=== PATIENT | male | born 1930 | race Caucasian/White ===

== ENCOUNTER → 2017-04-21 | Outpatient (CLI) | payer OTHER, BC | LOC: FIMAGING 13:21 | PROVIDERS: ATTEND Family Medicine | DX: M16.0 Bilateral primary osteoarthritis of hip (principal) ==

== ENCOUNTER → 2017-09-03 | Outpatient (CLI) | payer OTHER, BC | LOC: FIMAGING 17:45 | PROVIDERS: ATTEND Registered Nurse | DX: J44.9 Chronic obstructive pulmonary disease, unspecified (principal) ==

== ENCOUNTER → 2017-10-11 | Outpatient (CLI) | payer OTHER, BC | LOC: BHFA 14:00 | PROVIDERS: ATTEND Internal Medicine Cardiovascular Disease | DX: I50.30 Unspecified diastolic (congestive) heart failure (principal) | CPT/HCPCS: 78452; 93017; A9500; J2785 ==

== ENCOUNTER → 2017-10-16 | Outpatient (CLI) | payer OTHER, BC | LOC: BHFA 14:45 | PROVIDERS: ATTEND Internal Medicine | DX: I49.3 Ventricular premature depolarization (principal); I50.9 Heart failure, unspecified ==

== ENCOUNTER → 2018-08-14 | Outpatient (CLI) | payer OTHER, BC | LOC: FIMAGING 09:23 | PROVIDERS: ATTEND Registered Nurse | DX: R90.82 White matter disease, unspecified (principal); G31.9 Degenerative disease of nervous system, unspecified | CPT/HCPCS: 70551-PN ==

== ENCOUNTER → 2018-09-03 | Outpatient (CLI) | payer OTHER, BC ==
[~2018-09-03] MED LIST: GADOBUTROL 10 ML VIAL IVP ONE
== END ==
LOC: FIMAGING 13:29
PROVIDERS: ATTEND Physician Assistant Medical
DX: M48.02 Spinal stenosis, cervical region (principal); M50.31 Other cervical disc degeneration, high cervical region
CPT/HCPCS: 72156; A9585; 82565-PO

== ENCOUNTER → 2018-10-10 | Outpatient (CLI) | payer OTHER, BC | LOC: FIMAGING 12:04 | PROVIDERS: ATTEND Neurological Surgery | DX: M54.16 Radiculopathy, lumbar region (principal); Z87.81 Personal history of (healed) traumatic fracture ==

== ENCOUNTER → 2018-10-31 | Outpatient (CLI) | payer OTHER, BC | LOC: BHFA 11:00 | PROVIDERS: ATTEND Internal Medicine Cardiovascular Disease | DX: R06.02 Shortness of breath (principal); R42 Dizziness and giddiness ==